=== PATIENT | male | born 1935 | race Caucasian/White ===

== ENCOUNTER 2018-10-25 15:46 | Inpatient (IN) | payer MEDICARE | END 2018-10-27 17:40 | disposition home or self-care (01) | LOC: EDH 15:46 → 2DH 10-26 13:07 → EDHIP 21:59 | DX: N17.9 Acute kidney failure, unspecified (principal); I13.0 Hypertensive heart and chronic kidney disease with heart failure and stage 1 through stage 4 chronic kidney disease, or unspecified chronic kidney disease; E83.42 Hypomagnesemia; I48.2 Chronic atrial fibrillation; N18.9 Chronic kidney disease, unspecified; K91.1 Postgastric surgery syndromes; R19.7 Diarrhea, unspecified ==

== ENCOUNTER → 2019-06-15 | Outpatient (CLI) | payer MEDICARE ==
[~2019-06-15] MED LIST: APIX2.5T PO; ASCO500C18 PO; CALC600T12 PO; CHOL231P PO; FINA5TAB41 PO; FOLI1TAB15 PO; FURO20TA4 PO; LOSA25TA41 PO; MAGN400T40 PO; METO-408 PO; MULT-1296 PO; OMEP20TA2 PO; RANO500T3 PO
== END | disposition home or self-care (01) ==
LOC: RAH 13:50
PROVIDERS: ATTEND Internal Medicine
DX: R51 Headache (principal)
CPT/HCPCS: 70450

== ENCOUNTER → 2020-05-14 | Outpatient (CLI) | payer MEDICARE ==
[~2020-05-14] MED LIST changes: -CALC600T12 PO; +CALC600T15 PO
== END | disposition home or self-care (01) ==
LOC: RAH 11:13
PROVIDERS: ATTEND Physical Medicine & Rehabilitation
DX: M43.16 Spondylolisthesis, lumbar region (principal); M47.816 Spondylosis without myelopathy or radiculopathy, lumbar region; M51.36 Other intervertebral disc degeneration, lumbar region
CPT/HCPCS: 72110

== ENCOUNTER → 2020-07-17 | Outpatient (CLI) | payer MEDICARE ==
[~2020-07-17] MED LIST changes: +CALC-1125 PO; -CALC600T15 PO
== END | disposition home or self-care (01) ==
LOC: OIH 10:51
PROVIDERS: ATTEND Anesthesiology Pain Medicine
DX: M50.323 Other cervical disc degeneration at C6-C7 level (principal); M48.02 Spinal stenosis, cervical region; M43.22 Fusion of spine, cervical region
CPT/HCPCS: 72040

== ENCOUNTER → 2022-02-04 | Outpatient (CLI) | payer MEDICARE | END | disposition home or self-care (01) | LOC: RAH 01-07 09:29 | PROVIDERS: ATTEND Anesthesiology Pain Medicine | DX: M43.22 Fusion of spine, cervical region (principal); M47.22 Other spondylosis with radiculopathy, cervical region; M48.02 Spinal stenosis, cervical region | CPT/HCPCS: 72141 ==

== ENCOUNTER 2023-12-13 10:13 | Emergency (ER) | payer MEDICARE ==
[~2023-12-13] VITALS: Ht 182.9 cm; Wt 71.7 kg
[~2023-12-13 10:13] MED LIST changes: -ASCO500C18 PO; +CYAN50009 PO; +FOLI0.4T6 PO; -FOLI1TAB15 PO; -LOSA25TA41 PO; -MULT-1296 PO; -RANO500T3 PO
[2023-12-13] MEDS ORDERED: LORA5SOL62 PO (11:02)
[2023-12-13] MEDS ORDERED: FLUT9.9S NS (11:02)
[2023-12-13 11:50] VITALS: BP 146/86; PULSE 68; RESP 20; TEMP 98.4; O2SAT 97
== END 2023-12-13 12:10 | disposition home or self-care (01) ==
LOC: EDH 10:13
DX: J32.9 Chronic sinusitis, unspecified (principal); F41.0 Panic disorder [episodic paroxysmal anxiety]; Z79.899 Other long term (current) drug therapy; Z95.810 Presence of automatic (implantable) cardiac defibrillator; Z98.890 Other specified postprocedural states

== ENCOUNTER → 2024-03-04 | Outpatient (CLI) | payer MEDICARE ==
[~2024-03-04] MED LIST changes: +FLUT9.9S NS; +LORA5SOL62 PO
[2024-03-04 22:03] VITALS: PULSE 58; RESP 32
[2024-03-04 22:30] VITALS: PULSE 52; RESP 6
[2024-03-04 23:00] VITALS: PULSE 54; RESP 30
== END | disposition home or self-care (01) ==
LOC: SLP 20:52
PROVIDERS: ATTEND Internal Medicine Nephrology
DX: G47.33 Obstructive sleep apnea (adult) (pediatric) (principal)
CPT/HCPCS: 95811

== ENCOUNTER → 2024-03-28 | Outpatient (CLI) | payer MEDICARE ==
[~2024-03-28] MED LIST changes: +ERGO500093 PO; +FOLI20CA PO; +FURO40TA5 PO; +ISOS10TA96 PO; +MAGN500C4 PO; +MIRA25TA PO
--- NOTE | 2024-03-28 16:21 | HMCIMG ---
Exam Type: CHEST 2VWS Clinical Information: Shortness of breath Comparison: None Findings: The lungs are clear of infiltrates. The heart is enlarged in size. The bony and soft tissue structures of the chest are unremarkable. Left cardiac pacemaker is noted with leads in place. Impression: Clear lungs.
== END | disposition home or self-care (01) ==
LOC: RAH 14:57
PROVIDERS: ATTEND Internal Medicine Nephrology
DX: I51.7 Cardiomegaly (principal); R06.02 Shortness of breath
CPT/HCPCS: 71046

== ENCOUNTER 2025-02-13 20:21 | Emergency (ER) | payer MEDICARE ==
[~2025-02-13] VITALS: Ht 182.9 cm; Wt 70.3 kg
[~2025-02-13 20:21] MED LIST changes: -FOLI0.4T6 PO; -FURO20TA4 PO; -MAGN400T40 PO
[2025-02-13 21:06] LABS: COVID19 (SARS ANTIGEN RAPID) PRESUMPTIVE NEGATIVE (NEGATIVE); INFLUENZA TYPE A Negative For Type A (NEGATIVE); INFLUENZA TYPE B Negative For Type B (NEGATIVE)
--- NOTE | 2025-02-13 22:05 | ERN ---
General Chief Complaint: Flu Symptoms Stated Complaint: COUGH, RUNNY NOSE, GEN WEAKNESS Time Seen by MD: 20:54 Source: patient History of Present Illness Initial Comments Patient is a an 89-year-old male coming in complaining of a cough. Per patient the cough has been ongoing for a couple of weeks. Patient was evaluated by PCP started on antibiotics. He states that he is here because of the cough and nasal congestion. Allergies: Coded Allergies: No Known Drug Allergies (Unverified Allergy, Unknown, 01/24/17) Home Meds Active Scripts Loratadine (Loratadine Allergy) 5 Mg/5 Ml Solution, 5 MG PO DAILY for 30 Days, #30 ML Prov:EMILY LANCASTER I PAC 12/13/23 Fluticasone Propionate (Flonase Allergy Relief) 50 Mcg/Actuation [place].susp, 2 SPRAY NS DAILY for 14 Days, #60 SPRAY 0 Refills Prov:EMILY LANCASTER I PAC 12/13/23 Reported Medications Ergocalciferol (Vitamin D2) (Vitamin D2) 1,250 Mcg (07060 Unit) Capsule, 1250 MCG PO DAILY, CAP 03/30/24 Folic Acid (Folic Acid) 20 Mg Capsule, 400 MG PO DAILY, CAP 03/30/24 Calcium Carbonate (Calcium) 600 Mg Calcium (1500 Mg) Tablet, 600 MG PO BID, TAB 03/30/24 Magnesium Oxide (Magnesium) 500 Mg Capsule, 600 MG PO BID, CAP 03/30/24 Mirabegron (Myrbetriq) 25 Mg Tab.er.24h, 25 MG PO DAILY for INCONTINENCE, TAB 03/30/24 Furosemide (Furosemide) 40 Mg Tablet, 40 MG PO BID for FLUID OVERLOAD, TAB 03/30/24 Isosorbide Mononitrate (Isosorbide Mononitrate) 10 Mg Tablet, 15 MG PO HS, TAB 03/30/24 Metoprolol Succinate (Metoprolol Succinate) 25 Mg Tab.er.24h, 25 MG PO DAILY for BLOOD PRESSURE, TAB 03/30/24 Finasteride (Finasteride) 5 Mg Tablet, 5 MG PO DAILY, TAB 07/01/23 Cyanocobalamin (Vitamin B-12) (Vitamin B12) 5,000 Mcg Tab.rapdis, 5000 MCG PO DAILY, TAB 07/01/23 Cholestyramine/Aspartame (Prevalite Powder) 4 Gram Powder, 5.7 GM PO DAILY, APPL 10/26/18 Omeprazole Magnesium (Prilosec Otc) 20 Mg Tablet.dr, 20 MG PO DAILY, TAB 10/26/18 Apixaban (Eliquis) 2.5 Mg Tablet, 2.5 MG PO HS, TAB 10/26/18 Past Medical History Past Medical History: A-Fib, Anemia, Anxiety, CHF, Renal Disese Medical History Other: HX OF BOWEL OBSTRUCTION Past Surgical History: Appendectomy, Pacer/AICD, Other Surgical History Other: BOWEL RESECTION, LEFT SHOULDER Family History Family History: Negative ROS Dictation CONSTITUTIONAL: No chills, no fever, no weakness, no diaphoresis, no malaise. HEAD/FACE: No signs of trauma. EENT: No eye pain, no blurred vision, no tearing, no double vision, no ear pain, no ear discharge, no nose pain, nasal congestion, no throat pain, no throat swelling, no mouth pain. RESPIRATORY: No cough, no orthopnea, no SOB, no stridor, no wheezing. CARDIOVASCULAR: No chest pain, no edema, no palpitations, no syncope. GASTROINTESTINAL/ABDOMINAL: No abdominal pain, no constipation, no diarrhea, no nausea, no vomiting. GENITOURINARY: No abnormal discharge, no dysuria, no frequent urination, no hematuria. No complaints of pain in the genitals. MUSCULOSKELETAL: No back pain, no gout, no joint pain, no joint swelling, no muscle pain, no muscle stiffness, no neck pain. INTEGUMENTARY: No change in color, no change in hair/nails, no dryness, no lesion, no lumps, no rash. NEUROLOGICAL/PSYCH: No anxiety, not depressed, no emotional problem, no headache, no numbness, no pre-existing deficit, no history of seizures, no tremors, no weakness. HEMATOLOGIC/LYMPHATIC: Not anemic, no history of blood clots, no apparent bleeding, no bruising, glands not swollen. All Systems Negative, Except as Noted. Physical Exam Physical Exam Dictation VITAL SIGNS: Reviewed. GENERAL APPEARANCE: Alert, oriented x3, no acute distress, obese. HEAD AND FACE: Non-traumatic. EYES: PERRL, pink conjunctivas, eyelid no trauma, anterior chamber clear. EARS: Pinnas intact and no signs of trauma or erythema. Ear canals clear and no discharge. TMs erythema. NOSE: No discharge, no bleeding. OROPHARYNX: Mouth normal, teeth no caries, tongue pink. Pharynx erythema. Tonsils no exudates, no abscesses noted. Mucous membrane moist. NECK: Supple, non-tender, no thyromegaly, no masses, no JVD, no bruits. BREAST: Deferred. CHEST: No tenderness, no crepitus, no paradoxical movement, no retractions. LUNGS: Clear, well-ventilated, symmetric, no rales, no wheezing, no rhonchi, no stridor, good breath sounds bilaterally. HEART: Regular rate, regular rhythm, no murmur, no gallops. VASCULAR: No peripheral edema. ABDOMEN: Soft, positive bowel sounds, nondistended, no guarding, nontender, no rebound, no masses no hepatomegaly, no splenomegaly, no Tipton's sign, no hernias. RECTAL: Deferred. GENITAL: Deferred. NEUROLOGICAL: Normal speech, gross motor function intact, gross sensory function intact. MUSCULOSKELETAL: Neck nontender, full range of motion, back nontender, full range of motion. EXTREMITIES: Nontender, full range of motion. SKIN: Color pink, dry, no turgor, no rash, no lacerations, no abrasions, no contusions. LYMPHATICS: Deferred. Results Laboratory and Microbiology Lab and Micro Result Laboratory Tests Test 02/13/25 20:35 Influenza Type A Antigen Negative For Type A Influenza Type B Antigen Negative For Type B SARS-CoV-2 Antigen (Rapid) PRESUMPTIVE NEGATIVE Labs Reviewed?: Yes MDM MDM: Differential diagnosis: Sinusitis, URI, Rationale: Tests considered and ordered secondary to shared decision making include: Previous outside records reviewed: Old ER visits. Risk of complication and/or morbidity or mortality of patient management: None Medications-Per medication reconciliation Need for hospitalization: Patient does not meet criteria for hospitalization. Need for emergency major/minor surgery: No Patient is a an 89-year-old gentleman coming in with a URI symptoms. Laboratory workup negative for acute findings chest x-ray did not disclose acute findings. On physical findings there is bilateral otitis media as well as oropharyngeal erythema lungs are clear to auscultation. Patient will be discharged in stable condition with a diagnosis of sinusitis. Patient is currently taking Augmentin did advise him to continue taking antibiotics and follow up with PCP accordingly. ED Course Orders Procedure Category Date Status Time Influenza Type A & B, LAB 12/24/25 Complete Rapid 20:39 Covid19 (Sars Antigen LAB 02/13/25 Complete Rapid) 20:39 Chest 1vw RAD 02/13/25 Taken 20:39 Urinalysis LAB 02/13/25 Logged W/Microscopic 21:08 Vital Signs Date Time Temp Pulse Resp B/P (MAP) Pulse Ox O2 Delivery O2 Flow Rate FiO2 02/13/25 20:25 97.9 80 18 96 Room Air 0 DX & DISP Disposition: Discharge Departure Impression: Primary Impression: Sinusitis Condition: Stable Scripts Loratadine (Loratadine) 10 Mg Tablet 1 TAB PO DAILY for allergy symptoms for 30 Days, #30 TAB 0 Refills Prov: DANIELLE SCHUMACHER MD 02/13/25 Fluticasone Propionate (Flonase Nasal [place]) 50 Mcg/Actuation [place] 2 SPRAY NS DAILY, #16 GM 0 Refills Prov: DANIELLE SCHUMACHER MD 02/13/25 Additional Instructions: FOLLOW-UP WITH PRIMARY CARE PROVIDER IN 1 TO 2 DAYS. TAKE MEDICATIONS DIRECTED HERE IN THE EMERGENCY ROOM. OKAY TO CONTINUE HOME MEDICATIONS UNLESS OTHERWISE DISCUSSED DURING YOUR VISIT IN THE EMERGENCY ROOM TODAY. RETURN TO YOUR NEAREST EMERGENCY ROOM IF SYMPTOMS WORSEN OR IF THERE IS NO IMPROVEMENT. CALL 911 IF YOU NEED IMMEDIATE ASSISTANCE. TAKE TYLENOL [id number] NEEDED AND IF NO CONTRAINDICATIONS ARE PRESENT. INCREASE ORAL HYDRATION. A WOUND CULTURE OR URINE CULTURE WAS ORDERED HERE IN THE EMERGENCY ROOM DEPARTMENT PLEASE FOLLOW-UP WITH PRIMARY CARE PROVIDER AND ADVISE THEM TO GET REPORTS FROM OUR FACILITY. IF YOU HAD ANY ABNER WRAP/SPLINTS THAT WERE APPLIED HERE, PLEASE DO NOT REMOVE THEM UNTIL YOU SEE YOUR PRIMARY CARE OR SPECIALTY. Referrals: Referrals: JUAREZ PEÑA MD (PCP) Time of Disposition: 22:10 DANIELLE SCHUMACHER MD Feb 13, 2025 22:05
[2025-02-13] MEDS ORDERED: FLUT16H NS (22:11)
[2025-02-13] MEDS ORDERED: LORA10TA7 PO (22:11)
--- NOTE | 2025-02-13 22:13 | HMCIMG ---
EXAM: CR Chest, 1 View. CLINICAL HISTORY: COUGH COMPARISON: April 01, 2024. FINDINGS: LUNGS: The lungs show no infiltrate or other acute finding. PLEURAL SPACES: No pleural effusion or pneumothorax. MEDIASTINUM: Stable, mild cardiomegaly and well-placedexternal cardiac device - pacemaker implant. BONES: No acute osseous abnormality. IMPRESSION: No acute cardiopulmonary pathology is evident. Stable, mild cardiomegaly and well-placed external cardiac device - pacemaker implant. /[place]
[2025-02-13 22:41] LABS: APPEARANCE,URINE CLEAR (CLEAR); GLUCOSE, URINE (UA) NEGATIVE (NEGATIVE); LEUKOCYTE ESTERASE ,URINE NEGATIVE Leu/uL (NEGATIVE); NITRATE,URINE NEGATIVE (NEGATIVE); OCCULT BLOOD,URINE SMALL (NEGATIVE)
[2025-02-13 23:07] VITALS: BP 122/67; PULSE 82; RESP 18; TEMP 98.6; O2SAT 97
== END 2025-02-13 23:10 | disposition home or self-care (01) ==
LOC: EDH 20:21
DX: J32.9 Chronic sinusitis, unspecified (principal); I48.91 Unspecified atrial fibrillation; F41.9 Anxiety disorder, unspecified; I50.9 Heart failure, unspecified; Z79.899 Other long term (current) drug therapy; Z90.49 Acquired absence of other specified parts of digestive tract; Z95.810 Presence of automatic (implantable) cardiac defibrillator; Z20.822 Contact with and (suspected) exposure to COVID-19
CPT/HCPCS: 71045; 81001; 87426; 87804; 99284